=== PATIENT | female | born 1995 | race Hispanic/Latino ===

== ENCOUNTER → 2023-08-30 | Emergency (ER) | payer BC ==
[2023-08-30 03:59] LABS: Protime INR 0.98
[2023-08-30 04:21] LABS: ALT/SGPT 21 U/L (13-56); Albumin 3.9 g/dL (3.4-5.0); Alkaline Phosphatase 117 U/L (45-117); BUN Blood Urea Nitrogen 12 mg/dL (7-18); Bicarbonate 25 mEq/L (21-32); Bilirubin Total 0.1 mg/dL (0.2-1.0); Glomerular Filtration Rate 101 ml/min (=/>90); Glucose Level 117 mg/dL (74-106); Protein, Total 8.8 g/dL (6.4-8.2); Sodium Level 139 mEq/L (136-145)
[2023-08-30 04:22] LABS: AST/SGOT 16 U/L (15-37); Bilirubin Direct < 0.1 mg/dL (0-0.2); Bilirubin Indirect, Calculated ND mg/dL (0.2-0.8); Potassium 3.7 mEq/L (3.5-5.1)
[2023-08-30 04:27] LABS: Absolute Lymphocytes (CBC) 2.4 K/uL (0.7-4.9); Hematocrit 40.9 % (36.0-45.0); Lymphocytes % 22.7 % (15.3-44.8); MCV 87.1 fL (80-100); MPV 6.7 fL (7.6-11.3); Platelets 447 thou/uL (152-406)
[2023-08-30 05:23] LABS: Blood Morphology Comment NOT SEEN (NOT SEEN); Platelet Estimate ADEQ; White Blood Cell Scan OK (OK)
--- NOTE | 2023-08-30 05:41 | ER ---
Nurse's Notes [facility] Name: Sandra Pascual Age: 28 yrs Sex: Female : 1995 Arrival Date: 08/30/2023 Time: 01:48 Bed 6 Private MD: Diagnosis: Alcohol use, unspecified with intoxication Presentation: 08/30 01:59 Chief complaint: EMS states: pt had been drinking today and was walking around and as6 reported pt said she didn't want to be here anymore and called PD. pt denies wanting to harm herslef "I just want to be left along so I can sleep". Coronavirus screen: At this time, the client does not indicate any symptoms associated with coronavirus-19. Ebola Screen: No symptoms or risks identified at this time. Initial Sepsis Screen: Does the patient meet any 2 criteria? No. Patient's initial sepsis screen is negative. Does the patient have a suspected source of infection? No. Patient's initial sepsis screen is negative. Risk Assessment: Do you want to hurt yourself or someone else? Patient reports no desire to harm self or others. Onset of symptoms was August 30, 2023. 01:59 Acuity: ANDREA 2 as6 01:59 Method Of Arrival: EMS: [facility] as6 Historical: - Allergies: 01:58 Bactrim; as6 - Home Meds: 01:58 Zoloft Oral [Active]; as6 - PMHx: 01:58 Depressive disorder; as6 - Immunization history:: Adult Immunizations up to date. - Social history:: Smoking status: Patient reports the use of cigarette tobacco products, denies chronic smoking, but will smoke occasionally, cigars. - Family history:: not pertinent. Screenin:03 [facility] ED Fall Risk Assessment (Adult) Score/Fall Risk Level 0 - 2 = Low Risk. Abuse as6 screen: Denies threats or abuse. Denies injuries from another. Nutritional screening: No deficits noted. Tuberculosis screening: No symptoms or risk factors identified. Assessment: 02:45 General: Appears in no apparent distress. comfortable, Behavior is calm, appropriate jj7 for age, flat, quiet. Pain: Denies pain. Neuro: No deficits noted. 04:48 Reassessment: Patient is alert, oriented x 3, equal unlabored respirations, skin jj7 warm/dry/pink. AT BEDSIDE. SITTER AT BEDSIDE. 06:30 Reassessment: Patient is alert, oriented x 3, equal unlabored respirations, skin jj7 warm/dry/pink. Psych: 02:50 [place] Suicide Severity Screening: In the past month, have you wished you were jj7 or wished you could go to sleep and not wake up? Patient responds "No." "In the past month, have you actually had any thoughts of killing yourself?" Patient responds "yes." "In your lifetime, have you ever done anything, started to do anything, or prepared to do anything to end your life?" Patient responds "no.". Subjective: Patient's mood is irritable, Delusions are denied, Hallucinations are denied Having thoughts of suicide. Denies suicidal plan. Objective: Patient is cooperative, irritable, Speech is normal, Affect is flat. Interventions: Removed personal items and placed in bag. Urine collected and sent for urine drug test. Belonging list filled out. Safety Checks: Personal items have been removed. Pt has been placed in a hallway bed/chair. Door is open. Pt denies substance abuse. Commitment: Patient will be an involuntary commitment. Vital Signs: 01:57 BP 116 / 73; Pulse 88; Resp 18 S; Temp 97(TE); Pulse Ox 100% on R/A; Weight 111.13 kg as6 (R); Height 5 ft. 2 in. (R); Pain 7/10; 06:30 BP 121 / 69; Pulse 78; Resp 16; Pulse Ox 99% ; jj7 01:57 Body Mass Index 44.81 (111.13 kg, 157.48 cm) as6 01:57 Pain Scale: Adult as6 [place] Coma Score: 05:35 Eye Response: spontaneous(4). Motor Response: obeys commands(6). Verbal Response: sp4 oriented(5). Total: 15. ED Course: 01:49 Patient arrived in ED. sb4 01:57 Arm band placed on. as6 02:03 Triage completed. as6 02:04 Meño Tanner MD is Attending Physician. sp4 02:50 Safety Checks: Personal items have been removed. The door is open or patient has been jj7 placed in a hallway bed/chair. Sitter present at this time. 03:10 Patient has correct armband on for positive identification. Bed in low position. Call jj7 light in reach. 03:37 Acetaminophen Sent. jj7 03:37 Basic Metabolic Panel Sent. jj7 03:37 CBC with Diff Sent. jj7 03:37 ETOH Level Sent. jj7 03:37 Hepatic Function Sent. jj7 03:37 PT-INR Sent. jj7 03:38 Test, Urine Sent. j 03:38 Ptt, Activated Sent. jj7 03:38 Salicylate Sent. jj7 03:38 Inserted saline lock: 22 gauge in right antecubital area, using aseptic technique. jj7 Blood collected. 06:30 No provider procedures requiring assistance completed. IV discontinued, intact, jj7 bleeding controlled, No redness/swelling at site. Pressure dressing applied. Administered Medications: No medications were administered Medication: 02:04 VIS not applicable for this client. as6 Outcome: 05:41 ER care complete, transfer ordered by . sp4 05:52 Discharge ordered by . spSarthak 06:30 Discharged to home ambulatory, jj7 06:30 Discharged to home with significant other, 06:30 Condition: good 06:30 Discharge instructions given to patient, significant other, Instructed on discharge instructions, follow up and referral plans. Demonstrated understanding of instructions, follow-up care, 06:54 Patient left the ED. jj7 Signatures: Vahe Byokin RN RN as6 Simeon Velasquez RN RN jj7 Kenzie Amaro PA-C PAMeño Haji MD MD sp4
--- NOTE | 2023-08-30 05:42 | EDPHYS ---
Physician Documentation [facility] Name: Sandra Pascual Age: 28 yrs Sex: Female : 1995 Arrival Date: 08/30/2023 Time: 01:48 Bed 6 Private MD: ED Physician Meño Tanner HPI: 08/30 02:04 This 28 yrs old Female presents to ER via EMS with complaints of emotional sp4 upset . 02:24 Patient states she is not sure why she is here. Patient apparently made several sp4 statements to her saying that she does not want to live any longer and also another statement saying that she wants to jump in front of a car. This prompted call to the police. Patient was brought here with EMS. Patient states that she is not a danger to herself or anybody else.. . Historical: - Allergies: 01:58 Bactrim; as6 - Home Meds: 01:58 Zoloft Oral [Active]; as6 - PMHx: 01:58 Depressive disorder; as6 - Immunization history:: Adult Immunizations up to date. - Social history:: Smoking status: Patient reports the use of cigarette tobacco products, denies chronic smoking, but will smoke occasionally, cigars. - Family history:: not pertinent. ROS: 02:24 Constitutional: Negative for fever, chills, and weight loss, sp4 02:24 All other systems are negative, Exam: 02:24 Constitutional: This is a well developed, well nourished patient who is awake, alert, sp4 and in no acute distress. Head/Face: Normocephalic, atraumatic. Eyes: Pupils equal round and reactive to light, extra-ocular motions intact. Lids and lashes normal. Conjunctiva and sclera are not injected. Cornea within normal limits. Periorbital areas with no swelling, redness, or edema. ENT: Nares patent. No nasal discharge, no septal abnormalities noted. Tympanic membranes are normal and external auditory canals are clear. Oropharynx with no redness, swelling, or masses, exudates, or evidence of obstruction, uvula midline. Mucous membranes moist. Neck: Trachea midline, no thyromegaly or masses palpated, and no cervical lymphadenopathy. Supple, full range of motion without nuchal rigidity, or vertebral point tenderness. Chest/axilla: Normal chest wall appearance and motion. Nontender with no deformity. No lesions are appreciated. Cardiovascular: Regular rate and rhythm with a normal S1 and S2. No gallops, murmurs, or rubs. Normal PMI, no JVD. No pulse deficits. Respiratory: Lungs have equal breath sounds bilaterally, clear to auscultation and percussion. No rales, rhonchi or wheezes noted. No increased work of breathing, no retractions or nasal flaring. Abdomen/GI: Soft, non-tender, with normal bowel sounds. No distension or tympany. No guarding or rebound. No evidence of tenderness throughout. Back: No spinal tenderness. No costovertebral tenderness. Skin: Warm, dry with normal turgor. Normal color with no rashes, no lesions, and no evidence of cellulitis. MS/ Extremity: Pulses equal, no cyanosis. Neurovascular intact. Full, normal range of motion. Neuro: Awake and alert, GCS 15, oriented to person, place, time, and situation. Cranial nerves II-XII grossly intact. Motor strength 5/5 in all extremities. Sensory grossly intact. Psych: Awake, alert, with orientation to person, place and time. Behavior, mood, and affect are within normal limits 05:35 ECG was reviewed by the Attending Physician. EKG at 0 253 reveals normal sinus rhythm sp4 with normal EKG. The rate 94 Vital Signs: 01:57 BP 116 / 73; Pulse 88; Resp 18 S; Temp 97(TE); Pulse Ox 100% on R/A; Weight 111.13 kg as6 (R); Height 5 ft. 2 in. (R); Pain 7/10; 06:30 BP 121 / 69; Pulse 78; Resp 16; Pulse Ox 99% ; jj7 01:57 Body Mass Index 44.81 (111.13 kg, 157.48 cm) as6 01:57 Pain Scale: Adult as6 [place] Coma Score: 05:35 Eye Response: spontaneous(4). Motor Response: obeys commands(6). Verbal Response: sp4 oriented(5). Total: 15. MDM: 02:39 Patient medically screened. sp4 05:35 Differential Diagnosis altered mental status, sepsis, flu. Data reviewed: vital signs, sp4 nurses notes, EMS record, old medical records, lab test result(s), EKG. 05:40 Consideration of Admission/Observation Escalation of care including sp4 admission/observation considered. 05:56 ED course: Patient confirmed with me that she is not at risk of self-harm, denies sp4 suicidal ideation or plan at this time, patient was somewhat intoxicated but this has improved. Patient at this time stable for discharge home into the care of her family. is here and agrees with the discharge home. . 08/30 01:53 Order name: Acetaminophen; Complete Time: 05:34 sb4 08/30 01:53 Order name: Basic Metabolic Panel; Complete Time: 05:34 sb4 08/30 01:53 Order name: CBC with Diff; Complete Time: 05:34 sb4 08/30 01:53 Order name: ETOH Level; Complete Time: 05:34 sb4 08/30 01:53 Order name: Hepatic Function; Complete Time: 05:34 sb4 08/30 01:53 Order name: PT-INR; Complete Time: 05:34 sb4 08/30 01:53 Order name: Ptt, Activated; Complete Time: 05:34 sb4 08/30 01:53 Order name: Salicylate; Complete Time: 05:34 sb4 08/30 04:37 Order name: CBC Smear Scan; Complete Time: 05:34 EDMS 08/30 05:35 Order name: Alcohol Level sp4 08/30 01:53 Order name: EKG; Complete Time: 01:54 sb4 08/30 01:53 Order name: EKG - Nurse/Tech; Complete Time: 03:19 sb4 08/30 01:53 Order name: IV Saline Lock; Complete Time: 03:37 sb4 08/30 01:53 Order name: Labs collected and sent; Complete Time: 03:37 sb4 08/30 01:53 Order name: Suicide Precautions; Complete Time: 03:19 sb4 08/30 01:53 Order name: Suicide Screening ([place]); Complete Time: 03:19 sb4 EC:35 Rate is 94 beats/min. Rhythm is regular, Normal Sinus Rhythm. QRS [place] is Normal. [place] sp4 interval is normal. QRS interval is normal. QT interval is normal. No Q waves. T waves are Normal. No ST changes noted. Clinical impression: Normal ECG. Interpreted by me. Reviewed by me. Administered Medications: No medications were administered Disposition Summary: 08/30/23 05:52 Discharge Ordered Notes: Location: Home sp4 Problem: new(08/30/23 05:52) sp4 Symptoms: have improved(08/30/23 05:52) sp4 Condition: Stable(08/30/23 05:52) sp4 Diagnosis - Alcohol use, unspecified with intoxication(08/30/23 05:52) sp4 Followup: sp4 - With: Private Physician - When: 7 - 10 days - Reason: Recheck today's complaints Discharge Instructions: - Discharge Summary Sheet sp4 - Alcohol Intoxication sp4 Forms: - Patient Portal Instructions sp4 Signatures: Dispatcher [employer] EDVahe Pizarro RN RN as6 Kenzie Amaro PAHaleyC PAHaleyC sb4 Meño Tanner MD MD sp4 Corrections: (The following items were deleted from the chart) 05:51 05:41 Psychiatrist sp4 sp4 05:51 05:41 Psych Facility sp4 sp4 05:51 05:41 Higher level of care sp4 sp4 05:51 05:41 Stable sp4 sp4 05:51 05:41 new sp4 sp4 05:51 05:41 have improved sp4 sp4 05:51 05:41 Alcohol use, unspecified with intoxication sp4 sp4
[2023-08-30 07:29] VITALS: TEMP 97
[2023-08-30 07:35] VITALS: BP 121/69; O2SAT 99
--- NOTE | 2023-09-02 13:31 | EKG ---
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
== END ==
LOC: ER 01:48
DX: F10.929 Alcohol use, unspecified with intoxication, unspecified (principal); F32.A Depression, unspecified; Z72.0 Tobacco use; Z88.1 Allergy status to other antibiotic agents
CPT/HCPCS: 36415; 80048; 80076; 80143; 80179; 82077; 85025; 85610; 85730; 93005; 99285